=== PATIENT | female | born 1990 ===

== ENCOUNTER 2018-05-08 18:54 | Observation (INO) | payer BC, SELFPAY ==
[2018-05-08] VITALS (12 sets, daily range): BP systolic 103–148; BP diastolic 62–95; PULSE 64–124; RESP 14–29; TEMP 36.6–37.2; O2SAT 96–100
--- NOTE | 2018-05-08 19:10 | ED.GENADUL_ITS ---
Discharge Plan Discharge Details Chief Complaint: Seizure Admit Date/Time: 05/08/18 21:58 Admit Provider: Naveed Givens Attending Provider: Naveed Givens Primary Care Provider: Unknown,Unknown ED Provider: Kindra Reza Hospital Course Hospital Course: CC: Weakness. Complicated Migraine, Pseudoseizure. HPI: Very pleasant 27-year-old woman visiting from [place] in the [place] area, presented to [facility] emergency department with reported tonic-clonic seizure- like activity. Mrs. Yañez is originally from [facility], and is here locally for a honeymoon with her . She was earlier this spring. While here she was noted by her to be shaking - he brought her inside and put her on the couch. As she continued to shake and to be too weak to walk he transported her to the emergency room for further evaluation. In the emergency room she was witnessed to have some tonic-clonic activity, and received a total of 3 mg of IV lorazepam which then made her lethargic and too weak to walk. She was noted to have shaking motion which she seemed to be able to stop if directed, and was also noted to be conversant during the tonic- clonic activity. She was admitted as an outpatient observation status as she was noted to be too weak to walk. Hospital Course: (1) Pseudoseizures: Seizure like activity with patient able to be control movement and be conversant through the tonic-clonic activity - Very likely represents pseudoseizures. An MRI of the brain was obtained and essentially negative. Report of prior imaging obtained from outside institution - Small aneurysms seen on CT Angio of the brain not seen as MRI of the brain was not ideal test for this. However, no other abnormality noted by imaging. Patient remained asymptomatic. Recommended no driving, climbing ladders, or operating power machinery until follow-up with her own neurologist, but reassured her that her symptoms are not worrisome. Also without any leukocytosis, fever, evidence of UTI, or nuchal rigidity to suspect infection or meningitis. UDS checked and negative. Unfortunately Neurology was not available for official consultation at time of patient's admission. Home Meds and New Rx's Prescriptions: Continue citalopram [Celexa] 10 mg Tablet 10 mg PO DAILY RF: 0 sumatriptan succinate [Imitrex] 25 mg Tablet 25 mg PO PRN PRNRF: 0 cyanocobalamin (vitamin B-12) [Vitamin B-12] 1,000 mcg Tablet 1 tab PO DAILY RF: 0 magnesium 250 mg Tablet 250 mg PO DAILY RF: 0 lorazepam [Ativan] 1 mg Tablet PO PRN PRNRF: 0 loeczrp-vengbuwpqsoqg-hsmeoznx [Migraine Relief] 250-250-65 mg Tablet 1 tab PO PRN PRNRF: 0 Cbd 10 mg PO DAILY RF: 0 Discharge Instructions Instructions: Migraine Headache (DC), Subarachnoid Hemorrhage (DC) Additional Instructions: Please see your neurologist within one week of discharge. Please avoid driving, climbing ladders, or operating heavy machinery until cleared by your neurologist. Stand Alone Forms: Nursing Discharge Form Activity:: No Strenuous Activity Equipment/Supplies:: No Equipment Needed Diet:: As Tolerated Discharge Orders Discharge Orders: Discharge Order (Routine); Ordered 05/09/18 Ordered By: Boone Echols Medical Decision Making Patient is a 27-year-old female with a history of brain aneurysm and complex migraines who presents to the ED for a possible seizure. He was wheeled back to the ER room for convulsive body shaking while she was actively speaking stating I am having a seizure, I have a history of migraines . Her speech was stuttered and slowed. Patient was crying and anxious. who is present states that patient took Imitrex and Celexa today. States tonight she complained of a migraine and then had full body jerking and shaking which developed 1 hour ago. States they are from [place] but staying at a camp nearby. [facility] she is followed by neurology in [place]. He denies any previous history of similar episode of jerking and shaking as today. She does admit to CBD oil and smoking marijuana tonight but denies any other alcohol or drug use. Upon neurological exam, patient stated she could not move her legs but she did have spontaneous movement of all of her extremities with shaking and jerking. Normal cardiac and lung exam. Abdomen soft nontender. Airway intact and she is speaking in stuttered sentences. Vital vitals on arrival noted a blood pressure 148/95, heart rate 124, remainder vitals within normal limits. Patient given dose of 1 mg Ativan IV and appeared to have some improvement in her overall body shaking. 1905 --EKG notes a rate of 83, sinus, no acute ST elevation or depression, QTc 439. QRS 92. Question conversion like disorder but with pt's h/o brain aneurysm, will check labs, urinalysis, uds, urine , CT head, CXR. 2029 --CT head appears negative but final report pending. Case endorsed to Dr. Boston to f/u on labs and imaging results and pt disposition. HPI General Mode of arrival: wheelchair . Date/Time Provider Initiated Documentation: 05/08/18 19:08 . Limitations to Documentation: physical limitation . Information obtained by: patient and family . HPI Narrative: Patient is a 27-year-old female with a history of brain aneurysm and complex migraines who presents to the ED for a possible seizure. She was wheeled back to the ER room for convulsive body shaking while she was actively speaking stating I am having a seizure, I have a history of migraines . who is present states that patient took Imitrex and Celexa today. States tonight she complained of a migraine and then had full body jerking and shaking which developed 1 hour ago. States they are from [place] but staying at a camp nearby. [facility] she is followed by neurology in [place]. He denies any previous history of similar episode of jerking and shaking as today. She does admit to CBD oil and smoking marijuana tonight but denies any other alcohol or drug use. Past medical history: Brain aneurysm, Complex migraines Surgical history: None Social history: Occasional alcohol and marijuana. Denies drug use. Meds: Imitrex, Ativan, Celexa, Migraine relief Allergies: Codeine, Morphine, Compazine, Tramadol Related Data Home Medications Medication Instructions Recorded Confirmed Cbd 10 mg PO DAILY 05/08/18 [id number]-yggulrieztezl-wkbfbbfs 1 tab PO PRN PRN 05/08/18 05/08/18 [Migraine Relief] citalopram [Celexa] 10 mg PO DAILY 05/08/18 05/08/18 cyanocobalamin (vitamin B-12) 1 tab PO DAILY 05/08/18 05/08/18 [Vitamin B-12] lorazepam [Ativan] mg PO PRN PRN 05/08/18 magnesium 250 mg PO DAILY 05/08/18 05/08/18 sumatriptan succinate [Imitrex] 25 mg PO PRN PRN 05/08/18 05/08/18 Allergies Allergy/AdvReac Type Severity Reaction Status Date / Time hazelnut Allergy Unverified 05/08/18 19:08 codeine AdvReac Unverified 05/08/18 19:08 gluten AdvReac Unverified 05/08/18 19:08 Opioids - Morphine Analogues AdvReac Unverified 05/08/18 19:08 prochlorperazine AdvReac Unverified 05/08/18 19:08 [From Compazine] soy AdvReac Unverified 05/08/18 19:08 tramadol AdvReac Unverified 05/08/18 19:08 General Stated Complaint: Seizure XUAN: 2 Review of Systems Review of Systems All systems reviewed & are unremarkable except as noted in HPI and below and Unobtainable due to (unable to obtain from pt as she is actively shaking and jerking and crying) [facility] Medical History Cerebral aneurysm (Acute) Complicated migraine (Acute) Celiac disease (Chronic) Social History household members: spouse lives independently: Yes Smoking/Tobacco Use Status: Never additional social history: They live and work in [place] Exam Const General: healthy appearing and in distress (shaking, jerking and thrashing body and head around jerking, while talking and answering question in stuttered pattern) Orientation: alert and awake HENMT Head: normal to inspection Ears: hearing grossly normal bilaterally, external ears normal and TM's normal bilaterally General nose exam: external nose normal Face and sinus: normal facial exam Mouth: oral mucosae normal Eyes General: appearance normal, both eyes and all related structures Eyelids: eyelids normal Pupils: PERRL EOM: EOM intact bilaterally Neck Neck: normal visual inspection Lymphatic: no lymphadenopathy noted Chest Chest: normal inspection of the chest Resp Effort & Inspection: normal respiratory effort and abnormal respiratory pattern (speaking in stuttered robotic pattern, possibly due to sudden jerking movements ) Auscultation: clear to auscultation bilaterally Cardio Rate: regular rate Rhythm: regular rhythm GI Inspection: normal to inspection Palpation: soft, not firm, no guarding, no hepatosplenomegaly, no masses and nontender Auscultation: normal bowel sounds Skin General skin exam: no rashes or lesions noted Neuro General: alert, awake and moves all extremities Cognition: normal cognition Motor: other (unable to assess strength but able to move all extremities spontaneously ) Extrem General: normal to inspection, full ROM and normal capillary refill Psych Appearance: grossly normal Mental Status: mental status grossly normal Speech and Movement: speech and movement normal Affect: anxious affect and other (crying, robotic, jerking like speech/movement) Thought Process: normal (somewhat, able to answer questions but crying at times) Course Vital Signs Temperature 99.0 F 05/08/18 19:02 Pulse 124 H 05/08/18 19:02 Respiratory Rate 20 05/08/18 19:02 Blood Pressure 148/95 H 05/08/18 19:02 Pulse Oximetry 97 05/08/18 19:02 Temperature 99.0 F 05/08/18 19:02 Temperature Source Temporal Artery Scan 05/08/18 19:02 Pulse 124 H 05/08/18 19:02 Respiratory Rate 20 05/08/18 19:02 Respiratory Effort Non-Labored 05/08/18 19:04 Respiratory Depth Normal 05/08/18 19:04 Respiratory Pattern Normal 05/08/18 19:04 Blood Pressure 148/95 H 05/08/18 19:02 Blood Pressure Position Supine 05/08/18 19:02 Pulse Oximetry 97 05/08/18 19:02 Oxygen Delivery Method Room Air 05/08/18 19:02 Oxygen Flow Rate 0 05/08/18 19:02
[2018-05-08] MEDS: Normal Saline 1,000 ML 1000 ML IV (19:14)
[2018-05-08] MEDS: LORazepam 2 MG/ML VIAL ×2 (19:14→20:14)
[2018-05-08 19:17] LABS: Abs Immature Grans 0.01 k/cumm (0.0-0.09); Absolute Basophil Count 0.02 k/cumm (0.0-0.2); Absolute Lymphocyte Count 2.31 k/cumm (1.2-3.4); Absolute Monocyte Count 0.33 k/cumm (0.11-0.7); Absolute Neutrophil Count 3.68 k/cumm (1.2-6.7); Basophils % 0.3; Eosinophils % 4.5; HCT 37.8 % (36.0-46.0); HGB 12.7 g/dL (12.0-15.5); Immature Grans % 0.2; Lymphocytes % 34.7; Mean Corp. HGB Concentration 33.6 g/dL (32.0-36.0); Mean Corpuscular Hemoglobin 30.7 pg (27.0-33.0); Mean Corpuscular Volume 91.3 fL (80-95); Mean Platelet Volume 11.3 fL (8.0-11.0); Neutrophils % 55.3; Platelet Count 322 x1000/uL (130-400); RBC 4.14 m/cumm (4.00-5.20); RBC Distribution Width 12.3 % (11.7-14.6); White Blood Cell Count 6.65 k/cumm (4.4-10.8)
--- NOTE | 2018-05-08 19:25 | DI.CT_ITS ---
SYMPTOM/DIAGNOSIS: POSSIBLE SEIZURE. R/O ACUTE DISEASE CRANIAL CT (WITHOUT CONTRAST): Noncontrast. No priors. A noncontrast cranial CT was performed. The ventricular system is normal in appearance. There is no evidence of an intracranial mass lesion. There is no evidence of a subdural or epidural hematoma. No focal areas of decreased attenuation are seen. CONCLUSION: Normal noncontrast Cranial CT.
[2018-05-08 19:36] LABS: Bilirubin Negative (Negative); Blood Negative (Negative); Clarity Clear; Glucose Negative (Negative); Ketones Negative (Negative); Leukocyte Esterase Negative (Negative); Nitrite Negative (Negative); Urobilinogen 0.2 EU/dL (Up TO 0.2); pH 7.5 (5-8)
[2018-05-08 19:39] LABS: *AMPHETAMINES SCREEN URINE Negative (Negative); *BARBITURATES SCREEN URINE Negative (Negative); *BENZODIAZEPINES SCREEN URINE Negative (Negative); Cannabinoids THC Negative (Negative); Cocaine Screen,Urine Negative (Negative); METHADONE URINE SCREEN Negative (Negative); OPIATES URINE SCREEN Negative (Negative)
[2018-05-08 19:40] LABS: ALT 20 U/L (12-78); AST 16 U/L (15-37); Albumin 4.2 g/dL (3.4-5.0); Alkaline Phosphatase 63 U/L (46-116); Anion Gap 10.6 mmol/L (3-11); BUN 4 mg/dL (7-18); Bilirubin, Direct 0.08 mg/dL (0.00-0.20); Bilirubin, Total 0.3 mg/dL (0.2-1.0); CO2 26.4 mmol/L (21.0-32.0); CREATININE 0.63 mg/dL (0.55-1.02); Calcium 9.2 mg/dL (8.5-10.1); Chloride 103 mmol/L (98-107); Glucose 149 mg/dL (70-100); Magnesium 2.2 mg/dL (1.8-2.4); Potassium 3.8 mmol/L (3.5-5.1); Sodium 140 mmol/L (136-145); Total Protein 7.5 g/dL (6.4-8.2)
[2018-05-08 19:43] LABS: Tricyclic Antidepressants Negative (Negative)
[2018-05-08 19:43] LABS: Troponin I < 0.02 ng/mL (0.00-0.06)
--- NOTE | 2018-05-08 20:53 | DI.VRAD_ITS ---
EXAM: CT Head Without Intravenous Contrast CLINICAL HISTORY: 27 years old, female; Signs and symptoms; Other: Possible seizure TECHNIQUE: Axial computed tomography images of the head/brain without intravenous contrast. Coronal and sagittal reformatted images were created and reviewed. COMPARISON: None available. FINDINGS: Brain: Unremarkable. No hemorrhage. No significant white matter disease. No edema. Ventricles: Unremarkable. No ventriculomegaly. Bones/joints: Unremarkable. No acute fracture. Soft tissues: Unremarkable. Sinuses: Unremarkable as visualized. No acute sinusitis. Mastoid air cells: Unremarkable as visualized. No mastoid effusion. IMPRESSION: No acute intracranial findings. Dictated and Authenticated by: Catina Schwab MD. Ordering:PEREZ ROBLEDO MD
--- NOTE | 2018-05-08 21:25 | DI.RAD_ITS ---
SYMPTOM/DIAGNOSIS: POSSIBLE SEIZURE, LEG WEAKNESS. R/O ACUTE DISEASE CHEST X-RAY: PA and Lateral. The heart is normal in size. The lungs are clear. The mediastinal structures and pleura appear intact. CONCLUSION: Normal chest.
--- NOTE | 2018-05-08 22:07 | W.PM.HP.N ---
Date of service: 05/08/18 Time of Service: 22:07 Assessment and Plan (1) Cerebral aneurysm: Current visit: No Status: Acute This has been asymptomatic. She has never had it treated. Head CT here showed no abnormality. Exam is not consistent with an acute bleed. Continue observation only (2) Complicated migraine: Current visit: No Status: Acute Known history of complicated migraine. I think there is a psychiatric overlay here. Question conversion disorder, question pseudoseizure. Will admit to observation and monitor. I think some of her symptoms at this point are residual from the large dose of lorazepam. (3) Celiac disease: Current visit: No Status: Acute No symptoms. Gluten-free diet. History of Present Illness Chief Complaint: Weakness/pseudoseizure/complicated migraine Narrative: 27-year-old woman visiting from [place] in the [facility], presents this evening with some tonic-clonic activity. Her noted she was shaking, he brought her inside put her on the couch and she continued to shake and to be too weak to walk so he transported her to the emergency room In the emergency room she was witnessed to have some tonic-clonic activity she got a total of 3 mg of IV lorazepam and since that time she has been lethargic and too weak to walk. She is continued to have some shaking motion which she seems to be able to stop if told to do so. Of note, she was able to talk during the tonic-clonic activity. She is now too weak to walk and is being admitted to observation status. Review of Systems Constitutional Reports as per HPI and Reports weakness (Lower extremities) Eyes Denies blurry vision ENT Reports ear discharge Cardiovascular Denies chest pain at rest Respiratory Denies stridor and Denies wheezing Gastrointestinal Denies diarrhea, Denies nausea and Denies vomiting Genitourinary Denies abnormal menses Musculoskeletal Reports system reviewed and no additional complaints, except as docu Integumentary/Breasts Reports system reviewed and no additional complaints, except as docu Neurologic Reports seizure-like activity and Reports weakness (Lower extremities) Psychiatric Reports depression (Labile mood) Allergic/Immunologic Denies wheezing PFSH Medical History Cerebral aneurysm (Acute) Complicated migraine (Acute) Celiac disease (Acute) Social History household members: spouse lives independently: Yes Smoking/Tobacco Use Status: Never additional social history: They live and work in [place] Female Reproductive History Menstrual Date of last menstrual period: 05/08/18 Meds Home Medications Medication Instructions Recorded Confirmed Type Cbd 10 mg PO DAILY 05/08/18 History khjqols-ccnkrcjyufwro-xckigttv 1 tab PO PRN PRN 05/08/18 05/08/18 History [Migraine Relief] citalopram [Celexa] 10 mg PO DAILY 05/08/18 05/08/18 History cyanocobalamin (vitamin B-12) 1 tab PO DAILY 05/08/18 05/08/18 History [Vitamin B-12] lorazepam [Ativan] mg PO PRN PRN 05/08/18 History magnesium 250 mg PO DAILY 05/08/18 05/08/18 History sumatriptan succinate [Imitrex] 25 mg PO PRN PRN 05/08/18 05/08/18 History Allergies Allergy/AdvReac Type Severity Reaction Status Date / Time hazelnut Allergy Unverified 05/08/18 19:08 codeine AdvReac Unverified 05/08/18 19:08 gluten AdvReac Unverified 05/08/18 19:08 Opioids - Morphine Analogues AdvReac Unverified 05/08/18 19:08 prochlorperazine AdvReac Unverified 05/08/18 19:08 [From Compazine] soy AdvReac Unverified 05/08/18 19:08 tramadol AdvReac Unverified 05/08/18 19:08 Exam Narrative Exam Narrative: Lying on the stretcher, tearful, emotionally labile, displays a full affect Const General: cooperative, healthy appearing, comfortable and no acute distress Nutritional Appearance: average body habitus Orientation: alert, awake and oriented x3 HENMT Head: normal to inspection Ears: hearing grossly normal bilaterally, external ears normal (Large holes in both earlobe), TM's normal bilaterally and EAC's normal General nose exam: external nose normal Face and sinus: normal facial exam Mouth: oral mucosae normal Eyes General: appearance normal, both eyes and all related structures Alignment and Position: alignment normal Sclera: sclerae normal Cornea: corneas normal Pupils: PERRL Neck Neck: normal visual inspection Chest Chest: normal inspection of the chest Resp Effort & Inspection: normal respiratory effort Auscultation: clear to auscultation bilaterally Cardio Rate: regular rate Rhythm: regular rhythm Heart Sounds: S1 normal, S2 normal and no murmurs GI Inspection: normal to inspection Palpation: soft and nontender Skin General skin exam: no rashes or lesions noted Neuro General: alert, awake, moves all extremities (Extremely poor effort, handgrip 2/5, could not extend her legs against gravity), no meningeal signs and unable to assess gait Cognition: normal cognition Speech: speech normal Motor: muscle tone normal throughout, strength not 5/5 throughout and movement abnormality noted (She twitched her head side to side which appeared to be volitional and self attenuated when not observed) Psych Mood: labile mood Results Labs : 05/08/18 19:00 05/08/18 19:00 Laboratory Results - last 24 hr 05/08/18 05/08/18 05/08/18 19:00 19:00 19:20 WBC 6.65 RBC 4.14 Hgb 12.7 Hct 37.8 MCV 91.3 MCH 30.7 MCHC 33.6 RDW 12.3 Plt Count 322 MPV 11.3 H Immature Gran % 0.2 Neutrophils % 55.3 Lymphocytes % 34.7 Monocytes % 5.0 Eosinophils % 4.5 Basophils % 0.3 Absolute Neutrophils 3.68 Absolute Lymphocytes 2.31 Absolute Monocytes 0.33 Absolute Eosinophils 0.30 Absolute Basophils 0.02 Sodium 140 Potassium 3.8 Chloride 103 Carbon Dioxide 26.4 Anion Gap 10.6 BUN 4 L Creatinine 0.63 Estimated GFR/1.73 m2 >= 60.00 Glucose 149 H Calcium 9.2 Magnesium 2.2 Total Bilirubin 0.3 Conjugated Bilirubin 0.08 AST 16 ALT 20 Alkaline Phosphatase 63 Troponin I < 0.02 Total Protein 7.5 Albumin 4.2 Urine Color Yellow Urine Clarity Clear Urine pH 7.5 Ur Specific [place] 1.010 Urine Protein Negative Urine Ketones Negative Urine Blood Negative Urine Nitrite Negative Urine Bilirubin Negative Urine Urobilinogen 0.2 Ur Leukocyte Esterase Negative Urine Glucose Negative Urine Opiates Screen Urine Methadone Screen Ur Barbiturates Screen Ur Tricyclics Screen Ur Amphetamines Screen U Benzodiazepines Scrn Urine Cocaine Screen Ur THC Screen 05/08/18 19:20 WBC RBC Hgb Hct MCV MCH MCHC RDW Plt Count MPV Immature Gran % Neutrophils % Lymphocytes % Monocytes % Eosinophils % Basophils % Absolute Neutrophils Absolute Lymphocytes Absolute Monocytes Absolute Eosinophils Absolute Basophils Sodium Potassium Chloride Carbon Dioxide Anion Gap BUN Creatinine Estimated GFR/1.73 m2 Glucose Calcium Magnesium Total Bilirubin Conjugated Bilirubin AST ALT Alkaline Phosphatase Troponin I Total Protein Albumin Urine Color Urine Clarity Urine pH Ur Specific [place] Urine Protein Urine Ketones Urine Blood Urine Nitrite Urine Bilirubin Urine Urobilinogen Ur Leukocyte Esterase Urine Glucose Urine Opiates Screen Negative Urine Methadone Screen Negative Ur Barbiturates Screen Negative Ur Tricyclics Screen Negative Ur Amphetamines Screen Negative U Benzodiazepines Scrn Negative Urine Cocaine Screen Negative Ur THC Screen Negative
--- NOTE | 2018-05-08 22:09 | DI.VRAD_ITS ---
EXAM: XR Chest, 2 Views CLINICAL HISTORY: 27 years old, female; Signs and symptoms; Other: Weakness, possible seizure, R/O acute disease TECHNIQUE: Frontal and lateral views of the chest. COMPARISON: None available. FINDINGS: Lungs: Unremarkable. No consolidation. Pleural space: Unremarkable. No pneumothorax. Heart: Unremarkable. No cardiomegaly. Mediastinum: Unremarkable. Bones/joints: Unremarkable. IMPRESSION: No acute findings in the chest. Dictated and Authenticated by: Catina Schwab MD. Ordering:PEREZ ROBLEDO MD
--- NOTE | 2018-05-09 00:46 | ED.FU.B_ITS ---
Follow Up Plan: The case was signed out to be my my colleague Dr. Reza. We are pending head CT at that time. Head CT and chest x-ray results have returned , and per virtual radiology are as follows no acute intracranial findings. No acute findings in the chest. I did go into reassess the patient. On my repeat neurologic exam she demonstrates normal cranial nerves, normal movement of her upper extremities bilaterally. Evaluation of her lower extremities demonstrates notable difficulty with movement. Strength is 1 out of 5 bilaterally. Coordination is limited. She was unable to perform the heel-to- garnica test. She is unable to walk, and demonstrates severe ataxia secondary to lack of strength and movement coordination for her lower extremities. Sensation appears intact for lower extremities bilaterally, patellar reflex +2 bilaterally, dorsalis pedis pulse +2 bilaterally. The remainder the patient's upper extremity neurologic exam does appear intact. On extensive review with the patient of her previous history she states that this is very atypical from her normal symptoms with her complex migraines. She states that she has never had these shaking like movements before, nor has she ever had problems with her lower extremities. In the past when she has had severe odd neurologic abnormalities they have been associated with upper extremity weakness and never lower extremity weakness. She has had no trauma to suggest an anterior or central cord syndrome. She does demonstrate good rectal tone as well as no signs of saddle anesthesia. Her symptoms are very odd in her current clinical setting, however I am unable to resolve her ataxia at this time. Patient does appear notably frightened, and in discussing with the patient and her significant other, they state that they do not feel comfortable going home with her inability to walk and ambulate. I feel that this is certainly reasonable. I feel that her symptoms are most likely a combination of complex migraine, as well as potential conversion disorder. With no clear etiology of her symptoms, I feel this is more likely option. Plan at this time I feel will be inpatient observation until the morning when either a her symptoms will resolve, or she can be evaluated by her local neurologist Dr. Fraga. I discussed the case with Dr. feliz, and he has graciously accepted the patient for observation here in the hospital. I have extensively reviewed the treatment plan with the patient. I have addressed all patient concerns at this time. I have also discussed the plan with the admitting physician and they agree with the current assessment and plan and have agreed to assume responsibility for the patient. All parties demonstrate verbal understanding and agreement with our assessment and plan at this time.
[2018-05-09 04:21] VITALS: BP 98/65; PULSE 63; RESP 16; TEMP 36.5; O2SAT 100
[2018-05-09 07:15] VITALS: BP 98/61; PULSE 73; RESP 16; TEMP 36.6; O2SAT 98
--- NOTE | 2018-05-09 08:10 | PDOC.CMIN ---
- If Service Date Differs Date of service: 05/09/18 Time of Service: 08:10 Care Management Initial Assess REASON FOR HOSPITALIZATION:: Weakness, pseudoseizure. PAST MEDICAL HISTORY/PAST SURGICAL HISTORY:: Celiac disease, cerebral aneurysm, migraines. PREVIOUS FUNCTIONAL STATUS/SOCIAL/FAMILY SUPPORTS:: Sarah is newly and in [place] on her honeymoon. 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 She is independent with her ADLs and transportation. CURRENT FUNCTIONAL STATUS:: Patient presented at interdisciplinary rounds. Sarah is lying in bed with her , Alex, at bedside. She is engaged in conversation, makes good eye contact, and speaks very softly. She reports that she is very scared and is somewhat weepy at times when speaking. Sarah has an evident 'tic' when speaking. She has a history of complicated migraines and is followed in [place] by a neurologist and her PCP, Dr. Olena Carbajal. . She will be having a brain MRI this morning and CM will follow up with her after. ADVANCE DIRECTIVES:: Not on file at [facility]. Has patient been provided with information about the portal?: Yes Did the patient sign up for the portal?: No CODE STATUS:: Full Code INSURANCE COVERAGE / FINANCIAL ISSUES:: [employer]. CURRENT HOME/COMMUNITY SERVICES/EQUIPMENT:: No current home or community services. PRIMARY CARE PHYSICIAN:: Dr. Rosario Carbajal; [facility], [place], [place]. POTENTIAL DISCHARGE NEEDS:: Follow up appointment with PCP. PATIENT/FAMILY EDUCATION NEEDS:: Discharge education, any limitations, and follow up plan of care. Ask Me Three discussion. ANTICIPATED BARRIERS TO DISCHARGE:: No anticipated barriers to discharge. TRANSPORTATION:: Sarah will transport via private vehicle with , Alex. PLAN:: Sarah will discharge home when medically ready per MD.
--- NOTE | 2018-05-09 08:14 | INITIAL_ITS ---
- If Service Date Differs Date of service: 05/09/18 Time of Service: 08:10 Care Management Initial Assess REASON FOR HOSPITALIZATION:: Weakness, pseudoseizure. PAST MEDICAL HISTORY/PAST SURGICAL HISTORY:: Celiac disease, cerebral aneurysm, migraines. PREVIOUS FUNCTIONAL STATUS/SOCIAL/FAMILY SUPPORTS:: Sarah is newly and in [place] on her honeymoon. 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 She is independent with her ADLs and transportation. CURRENT FUNCTIONAL STATUS:: Patient presented at interdisciplinary rounds. Sarah is lying in bed with her , Alex, at bedside. She is engaged in conversation, makes good eye contact, and speaks very softly. She reports that she is very scared and is somewhat weepy at times when speaking. Sarah has an evident 'tic' when speaking. She has a history of complicated migraines and is followed in [place] by a neurologist and her PCP, Dr. Olena Carbajal. [phone]. She will be having a brain MRI this morning and CM will follow up with her after. ADVANCE DIRECTIVES:: Not on file at [facility]. Has patient been provided with information about the portal?: Yes Did the patient sign up for the portal?: No CODE STATUS:: Full Code INSURANCE COVERAGE / FINANCIAL ISSUES:: Blue [employer]. CURRENT HOME/COMMUNITY SERVICES/EQUIPMENT:: No current home or community services. PRIMARY CARE PHYSICIAN:: Dr. Rosario Carbajal; [facility], [place], [place]. POTENTIAL DISCHARGE NEEDS:: Follow up appointment with PCP. PATIENT/FAMILY EDUCATION NEEDS:: Discharge education, any limitations, and follow up plan of care. Ask Me Three discussion. ANTICIPATED BARRIERS TO DISCHARGE:: No anticipated barriers to discharge. TRANSPORTATION:: Sarah will transport via private vehicle with , Alex. PLAN:: Sarah will discharge home when medically ready per MD.
[2018-05-09] MEDS: Citalopram 10 MG TAB PO (08:17)
[2018-05-09] MEDS: Magnesium Gluconate 500 MG TAB 250 MG PO (08:17)
[2018-05-09] MEDS: Cyanocobalamin 500 MCG TAB 1000 MCG PO (08:17)
[2018-05-09 10:00] VITALS: O2SAT 99
[2018-05-09] MEDS: LORazepam 1 MG TAB PO (10:10)
[2018-05-09] MEDS: Normal Saline Flush 10 ML SYR (10:11)
[2018-05-09 10:35] VITALS: O2SAT 99
[2018-05-09] MEDS: Normal Saline Flush 10 ML SYR 20 ML (11:21)
[2018-05-09] MEDS: LORazepam 2 MG/ML VIAL 1 MG IVP (11:21)
[2018-05-09] MEDS: Gadoterate meglumine 20 ML VIAL 11 ML IVP (11:50)
--- NOTE | 2018-05-09 12:00 | DI.MRI_ITS ---
SYMPTOM/DIAGNOSIS: HX PSEUDOSEIZURE MRI BRAIN: Pre and post contrast examination was performed. Comparison CT is 05/08/18 There is normal signal in the brain parenchyma. No intracranial mass, acute midline shift or mass effect is identified. The diffusion weighted images have a normal appearance. No intracranial hemorrhage is seen. The ventricles are intact. The basilar cisterns are patent. The orbits and retro orbital soft tissues are unremarkable. Following contrast administration, no enhancing lesion is identified. The visualized paranasal sinuses are clear. The temporal lobes appear symmetric. IMPRESSION: Negative MRI of the brain.
--- NOTE | 2018-05-09 13:45 | W.PM.DS.N ---
Date of service: 05/09/18 Time of Service: 13:45 DS: Diagnosis Discharge Diagnosis (1) Cerebral aneurysm: Status: Acute (2) Complicated migraine: Status: Acute (3) Celiac disease: Status: Chronic Discharge Plan Disposition Patient Disposition: HOME Condition: Stable Discharge Details Reason For Visit: WEAKNESS,PSEUDOSEIZURE Admit Date/Time: 05/08/18 21:58 Admit Provider: Naveed Givens Attending Provider: Naveed Givens Primary Care Provider: Unknown,Unknown Hospital Course Hospital Course: CC: Weakness. Complicated Migraine, Pseudoseizure. HPI: Very pleasant 27-year-old woman visiting from [place] in the [place] area, presented to [facility] emergency department with reported tonic-clonic seizure-like activity. Mrs. Yañez is originally from [facility], and is here locally for a honeymoon with her . She was earlier this spring. While here she was noted by her to be shaking - he brought her inside and put her on the couch. As she continued to shake and to be too weak to walk he transported her to the emergency room for further evaluation. In the emergency room she was witnessed to have some tonic-clonic activity, and received a total of 3 mg of IV lorazepam which then made her lethargic and too weak to walk. She was noted to have shaking motion which she seemed to be able to stop if directed, and was also noted to be conversant during the tonic-clonic activity. She was admitted as an outpatient observation status as she was noted to be too weak to walk. Hospital Course: (1) Pseudoseizures: Seizure like activity with patient able to be control movement and be conversant through the tonic-clonic activity - Very likely represents pseudoseizures. An MRI of the brain was obtained and essentially negative. Report of prior imaging obtained from outside institution - Small aneurysms seen on CT Angio of the brain not seen as MRI of the brain was not ideal test for this. However, no other abnormality noted by imaging. Patient remained asymptomatic. Recommended no driving, climbing ladders, or operating power machinery until follow-up with her own neurologist, but reassured her that her symptoms are not worrisome. Also without any leukocytosis, fever, evidence of UTI, or nuchal rigidity to suspect infection or meningitis. UDS checked and negative. Unfortunately Neurology was not available for official consultation at time of patient's admission. Home Meds and New Rx's Prescriptions: Continue citalopram [Celexa] 10 mg Tablet 10 mg PO DAILY RF: 0 sumatriptan succinate [Imitrex] 25 mg Tablet 25 mg PO PRN PRNRF: 0 cyanocobalamin (vitamin B-12) [Vitamin B-12] 1,000 mcg Tablet 1 tab PO DAILY RF: 0 magnesium 250 mg Tablet 250 mg PO DAILY RF: 0 lorazepam [Ativan] 1 mg Tablet PO PRN PRNRF: 0 [id number]-hgwqyjjw [Migraine Relief] 250-250-65 mg Tablet 1 tab PO PRN PRNRF: 0 Cbd 10 mg PO DAILY RF: 0 Discharge Instructions Additional Instructions: Please see your neurologist within one week of discharge. Please avoid driving, climbing ladders, or operating heavy machinery until cleared by your neurologist. Activity:: No Strenuous Activity Equipment/Supplies:: No Equipment Needed Diet:: As Tolerated Discharge Orders Discharge Orders: Discharge Order (Routine); Ordered 05/09/18 Ordered By: Boone Echols DS: Data Vitals/I&O Vitals and I&O: Vital Signs Temperature 36.6 C 05/09/18 07:15 Temperature Source Tympanic 05/09/18 07:15 Pulse 73 05/09/18 07:15 Pulse Rhythm Regular 05/08/18 22:58 Pulse 70 05/08/18 19:32 Respiratory Rate 16 05/09/18 07:15 Respiratory Effort Non-Labored 05/08/18 22:58 Respiratory Depth Normal 05/08/18 22:58 Respiratory Pattern Normal 05/08/18 22:58 Blood Pressure 98/61 L 05/09/18 07:15 Blood Pressure Mean 83 05/08/18 19:31 Blood Pressure Position Supine 05/08/18 19:02 Pulse Oximetry 99 05/09/18 10:35 Oxygen Delivery Method Nasal Cannula 05/09/18 10:35 Oxygen Flow Rate 1 05/09/18 10:35 Pain Level 0 05/09/18 07:20 Comment 05/09/18 10:36 Intake & Output 05/08/18 05/09/18 05/09/18 23:59 11:59 23:59 Intake Total 1000 / 1000 1680 / 1680 Output Total 900 / 900 900 / 900 Balance 100 / 100 780 / 780 Weight 55.3 kg Intake: IV 1000 / 1000 / Oral 1650 / 1650 Output: Urine 900 / 900 900 / 900 Other: Urine Color Yellow Urine Appearance Clear Clear Urine Odor Normal Normal Comment Void x1 in the toilet. Voiding Methods Toilet Pending studies at discharge: WBC 6.65 k/cumm (4.4-10.8) 05/08/18 19:00 RBC 4.14 m/cumm (4.00-5.20) 05/08/18 19:00 Hgb 12.7 g/dL (12.0-15.5) 05/08/18 19:00 Hct 37.8 % (36.0-46.0) 05/08/18 19:00 MCV 91.3 fL (80-95) 05/08/18 19:00 MCH 30.7 pg (27.0-33.0) 05/08/18 19:00 MCHC 33.6 g/dL (32.0-36.0) 05/08/18 19:00 RDW 12.3 % (11.7-14.6) 05/08/18 19:00 Plt Count 322 x1000/uL (130-400) 05/08/18 19:00 MPV 11.3 fL (8.0-11.0) H 05/08/18 19:00 Immature Gran % 0.2 05/08/18 19:00 Neutrophils % 55.3 05/08/18 19:00 Lymphocytes % 34.7 05/08/18 19:00 Monocytes % 5.0 05/08/18 19:00 Eosinophils % 4.5 05/08/18 19:00 Basophils % 0.3 05/08/18 19:00 Absolute Neutrophils 3.68 k/cumm (1.2-6.7) 05/08/18 19:00 Absolute Lymphocytes 2.31 k/cumm (1.2-3.4) 05/08/18 19:00 Absolute Monocytes 0.33 k/cumm (0.11-0.7) 05/08/18 19:00 Absolute Eosinophils 0.30 k/cumm (0.0-0.7) 05/08/18 19:00 Absolute Basophils 0.02 k/cumm (0.0-0.2) 09/27/18 19:00 Sodium 140 mmol/L (136-145) 05/08/18 19:00 Potassium 3.8 mmol/L (3.5-5.1) 05/08/18 19:00 Chloride 103 mmol/L (98-107) 05/08/18 19:00 Carbon Dioxide 26.4 mmol/L (21.0-32.0) 05/08/18 19:00 Anion Gap 10.6 mmol/L (3-11) 05/08/18 19:00 BUN 4 mg/dL (7-18) L 05/08/18 19:00 Creatinine 0.63 mg/dL (0.55-1.02) 05/08/18 19:00 Estimated GFR/1.73 m2 >= 60.00 (mL/min/1.73m2) 05/08/18 19:00 Glucose 149 mg/dL (70-100) H 05/08/18 19:00 Calcium 9.2 mg/dL (8.5-10.1) 05/08/18 19:00 Magnesium 2.2 mg/dL (1.8-2.4) 05/08/18 19:00 Total Bilirubin 0.3 mg/dL (0.2-1.0) 05/08/18 19:00 Conjugated Bilirubin 0.08 mg/dL (0.00-0.20) 05/08/18 19:00 AST 16 U/L (15-37) 05/08/18 19:00 ALT 20 U/L (12-78) 05/08/18 19:00 Alkaline Phosphatase 63 U/L (46-116) 05/08/18 19:00 Troponin I < 0.02 ng/mL (0.00-0.06) 05/08/18 19:00 Total Protein 7.5 g/dL (6.4-8.2) 05/08/18 19:00 Albumin 4.2 g/dL (3.4-5.0) 05/08/18 19:00 Urine Color Yellow (Yellow) 05/08/18 19:20 Urine Clarity Clear 05/08/18 19:20 Urine pH 7.5 (5-8) 05/08/18 19:20 Ur Specific [place] 1.010 (1.005-1.025) 05/08/18 19:20 Urine Protein Negative mg/dL (Negative) 05/08/18 19:20 Urine Ketones Negative mg/dL (Negative) 05/08/18 19:20 Urine Blood Negative (Negative) 05/08/18 19:20 Urine Nitrite Negative (Negative) 05/08/18 19:20 Urine Bilirubin Negative (Negative) 05/08/18 19:20 Urine Urobilinogen 0.2 EU/dL (Up TO 0.2) 05/08/18 19:20 Ur Leukocyte Esterase Negative (Negative) 05/08/18 19:20 Urine Glucose Negative mg/dL (Negative) 05/08/18 19:20 Urine Opiates Screen Negative (Negative) 05/08/18 19:20 Urine Methadone Screen Negative (Negative) 05/08/18 19:20 Ur Barbiturates Screen Negative (Negative) 05/08/18 19:20 Ur Tricyclics Screen Negative (Negative) 05/08/18 19:20 Ur Amphetamines Screen Negative (Negative) 05/08/18 19:20 U Benzodiazepines Scrn Negative (Negative) 05/08/18 19:20 Urine Cocaine Screen Negative (Negative) 05/08/18 19:20 Ur THC Screen Negative (Negative) 05/08/18 19:20 Labs on day of discharge: Labs from last 24 hours 05/08/18 05/08/18 05/08/18 19:20 19:20 19:00 WBC 6.65 RBC 4.14 Hgb 12.7 Hct 37.8 MCV 91.3 MCH 30.7 MCHC 33.6 RDW 12.3 Plt Count 322 MPV 11.3 H Immature Gran % 0.2 Neutrophils % 55.3 Lymphocytes % 34.7 Monocytes % 5.0 Eosinophils % 4.5 Basophils % 0.3 Absolute Neutrophils 3.68 Absolute Lymphocytes 2.31 Absolute Monocytes 0.33 Absolute Eosinophils 0.30 Absolute Basophils 0.02 Sodium Potassium Chloride Carbon Dioxide Anion Gap BUN Creatinine Estimated GFR/1.73 m2 Glucose Calcium Magnesium Total Bilirubin Conjugated Bilirubin AST ALT Alkaline Phosphatase Troponin I Total Protein Albumin Urine Color Yellow Urine Clarity Clear Urine pH 7.5 Ur Specific [place] 1.010 Urine Protein Negative Urine Ketones Negative Urine Blood Negative Urine Nitrite Negative Urine Bilirubin Negative Urine Urobilinogen 0.2 Ur Leukocyte Esterase Negative Urine Glucose Negative Urine Opiates Screen Negative Urine Methadone Screen Negative Ur Barbiturates Screen Negative Ur Tricyclics Screen Negative Ur Amphetamines Screen Negative U Benzodiazepines Scrn Negative Urine Cocaine Screen Negative Ur THC Screen Negative 05/08/18 19:00 WBC RBC Hgb Hct MCV MCH MCHC RDW Plt Count MPV Immature Gran % Neutrophils % Lymphocytes % Monocytes % Eosinophils % Basophils % Absolute Neutrophils Absolute Lymphocytes Absolute Monocytes Absolute Eosinophils Absolute Basophils Sodium 140 Potassium 3.8 Chloride 103 Carbon Dioxide 26.4 Anion Gap 10.6 BUN 4 L Creatinine 0.63 Estimated GFR/1.73 m2 >= 60.00 Glucose 149 H Calcium 9.2 Magnesium 2.2 Total Bilirubin 0.3 Conjugated Bilirubin 0.08 AST 16 ALT 20 Alkaline Phosphatase 63 Troponin I < 0.02 Total Protein 7.5 Albumin 4.2 Urine Color Urine Clarity Urine pH Ur Specific [place] Urine Protein Urine Ketones Urine Blood Urine Nitrite Urine Bilirubin Urine Urobilinogen Ur Leukocyte Esterase Urine Glucose Urine Opiates Screen Urine Methadone Screen Ur Barbiturates Screen Ur Tricyclics Screen Ur Amphetamines Screen U Benzodiazepines Scrn Urine Cocaine Screen Ur THC Screen
--- NOTE | 2018-05-09 15:32 | PDOC.CMDIS ---
- If Service Date Differs Date of service: 05/09/18 Time of Service: 15:32 LACE Index Scoring Tool - Questions: Length of Stay (in days): 2 Acuity (Admit via E.D.?): Yes E.D. Visits: 1 - Answers: Total Score: 6 Risk of Readmission: Low Risk Care Management Discharge Reason for Hospitalization: Weakness, pseudoseizure. Discharge Plan: Sarah will discharge when medically ready per MD. Anticipate patient will discharge with no services and follow up with her neurologist. Sarah will transport via private vehicle with her , Alex. Patient/Family Education Needs: Discharge education, any limitations and follow up plan of care. Ask Me Three discussion.
--- NOTE | 2018-05-09 15:40 | CHAPLAIN ---
Sarah was on the phone. I spoke with her . They expected Sarah will be discharged this afternoon.
== END 2018-05-09 16:02 | disposition home or self-care (01) ==
LOC: ER 22:45 → MS 05-09 09:28
PROVIDERS: Admitting Provider Family Medicine; Emergency Provider Physician Assistant; Visit Provider Internal Medicine
DX: F44.5 Conversion disorder with seizures or convulsions; G43.109 Migraine with aura, not intractable, without status migrainosus; R53.1 Weakness
CPT/HCPCS: 36415; 70553; 80053; 80076; 80307; 81025; 96361; 96374; 96376; 99217; 99222; 99285; 70450; 71046; 81003; 83735; 84484; 85025; 93010; 99219; 99281; G0378; J2060